=== PATIENT | female | born 2000 | race Caucasian/White ===

== ENCOUNTER 2018-04-30 18:16 | Emergency (ER) | payer BC, OTHER ==
[2018-04-30] MEDS: NS 1,000 ML IV (19:00)
[2018-04-30 19:13] LABS: BASO % 0.2 % (0.0-1.0); EOS % 0.2 % (0.0-3.0); HEMATOCRIT 41.1 % (36.0-47.0); IMMATURE GRANULOCYTE % 0.6 % (0-3.0); LYMPH # 1.6 10^3/uL (1.5-6.5); LYMPH % 11.4 % (24.0-44.0); MEAN CORPUSCULAR HEMOGLOBIN 30.2 pg (27.0-33.0); MEAN CORPUSCULAR HGB CONC 34.1 g/dl (32.0-36.5); MEAN CORPUSCULAR VOLUME 88.8 fl (80.0-96.0); MONO # 0.6 10^3/uL (0.0-0.8); MONO % 4.5 % (0.0-5.0); NEUTROPHILS # 11.7 10^3/uL (1.8-7.7); NEUTROPHILS % 83.1 % (36.0-66.0); PLATELET COUNT, AUTOMATED 201 10^3/uL (150-450); RED BLOOD COUNT 4.63 10^6/uL (4.00-5.40); RED CELL DISTRIBUTION WIDTH 11.8 % (11.5-14.5); WHITE BLOOD COUNT 14.1 10^3/uL (4.0-10.0)
[2018-04-30 19:22] LABS: CONTROL LINE HCG INT CTR LINE PRESENT; HCG, SERUM QUALITATIVE NEGATIVE (NEGATIVE)
[2018-04-30 19:30] LABS: ALBUMIN 4.2 GM/DL (3.2-5.2); ALBUMIN/GLOBULIN RATIO 1.14 (1.00-1.93); ALKALINE PHOSPHATASE 61 U/L (45-117); ALT/SGPT 21 U/L (12-78); ANION GAP 8 MEQ/L (8-16); AST/SGOT 19 U/L (7-37); BILIRUBIN,DIRECT 0.1 MG/DL (0.0-0.2); BILIRUBIN,TOTAL 0.6 MG/DL (0.2-1.0); BLOOD UREA NITROGEN 11 MG/DL (7-18); CALCIUM LEVEL 8.7 MG/DL (8.5-10.1); CARBON DIOXIDE LEVEL 27 MEQ/L (21-32); CHLORIDE LEVEL 105 MEQ/L (98-107); GLUCOSE, FASTING 127 MG/DL (70-100); LIPASE 86 U/L (73-393); POTASSIUM SERUM 3.8 MEQ/L (3.5-5.1); SODIUM LEVEL 140 MEQ/L (136-145); TOTAL PROTEIN 7.9 GM/DL (6.4-8.2)
[2018-04-30] MEDS: GASTROGRAFIN SOLUTION 30ML PO ×2 (20:20→20:53)
[2018-04-30 20:30] LABS: KETONE, URINE AUTO RFX NEGATIVE (NEGATIVE); LEUKOCYTE ESTERASE UR AUTO RFX NEGATIVE (NEGATIVE); NITRITE, URINE AUTO RFX NEGATIVE (NEGATIVE); RBC, URINE AUTO RFX 2 /HPF (0-3); SPECIFIC GRAVITY UR AUTO RFX 1.004 (1.002-1.035); SQUAM EPITHELIAL CELL UR AURFX 0 /HPF (0-6); WBC, URINE AUTO RFX 1 /HPF (0-3)
[2018-04-30 20:49] LABS: CHLAMYDIA DNA AMPLIFICATION NEGATIVE (NEGATIVE); GC DNA AMPLIFICATION NEGATIVE (NEGATIVE)
[2018-04-30] MEDS ORDERED: ISOVUE-370 76% 100ML VIAL (Q9967) As Ordered (21:29)
[2018-04-30] MEDS: OXYCODONE/APAP 5MG/325MG(BULK FOR ED) 1 TABLET PO (22:45)
== END 2018-04-30 23:10 | disposition home or self-care (01) ==
LOC: M ED 18:16
DX: N83.201 Unspecified ovarian cyst, right side (principal)
CPT/HCPCS: Q9963

== ENCOUNTER → 2019-07-05 | Outpatient (REF) | payer BC, OTHER ==
[~2019-07-05] MED LIST: PERC5TAB12 PO
[2019-07-15 14:58] LABS: HPV HYBRID CAPTURE II Negative (Negative)
== END ==
LOC: M LAB LCGH 13:44
PROVIDERS: ATTEND Physician Assistant
DX: N76.0 Acute vaginitis (principal); Z12.4 Encounter for screening for malignant neoplasm of cervix
CPT/HCPCS: 87624; G0123

== ENCOUNTER → 2022-09-17 | Outpatient (CLI) | payer OTHER ==
[2022-09-17 15:20] LABS: HEMATOCRIT 36.5 % (36.0-47.0); HEMOGLOBIN 11.7 g/dl (12.0-15.5); MEAN CORPUSCULAR HEMOGLOBIN 25.4 pg (27.0-33.0); MEAN CORPUSCULAR HGB CONC 32.1 g/dl (32.0-36.5); MEAN CORPUSCULAR VOLUME 79.3 fl (80.0-96.0); PLATELET COUNT, AUTOMATED 243 10^3/uL (150-450); WHITE BLOOD COUNT 10.7 10^3/uL (4.0-10.0)
[2022-09-17 15:56] LABS: HIV 1&2 SCREEN CENTAUR NEGATIVE (NEGATIVE)
[2022-09-17 16:04] LABS: HEPATITIS C VIRUS ABY INDEX 0.1 INDEX (<0.8)
[2022-09-17 17:02] LABS: GC DNA AMPLIFICATION NEGATIVE (NEGATIVE)
== END ==
LOC: M PLALAB 12:06
PROVIDERS: ATTEND Specialist
DX: Z34.01 Encounter for supervision of normal first pregnancy, first trimester (principal); Z3A.00 Weeks of gestation of pregnancy not specified

== ENCOUNTER → 2022-11-10 | Outpatient (CLI) | payer OTHER | LOC: M RAD 13:42 | PROVIDERS: ATTEND Specialist | DX: O30.042 Twin pregnancy, dichorionic/diamniotic, second trimester (principal); Z3A.20 20 weeks gestation of pregnancy ==

== ENCOUNTER 2022-12-15 22:42 | Outpatient (CLI) | payer OTHER ==
[~2022-12-15] VITALS: Ht 154.9 cm; Wt 65.5 kg
[2022-12-15 23:39] VITALS: BP 109/60
[2022-12-16] VITALS (7 sets, daily range): BP systolic 95–125; BP diastolic 53–69
[2022-12-16] MEDS ORDERED: PRENTAB9 PO (01:00)
[2022-12-16] MEDS ORDERED: HOME MED LIST COMPLETE! XX SCH (01:05)
[2022-12-16] MEDS ORDERED: TERBUTALINE SULFATE 1 MG/ML 1ML VIAL SC STA (02:34)
[2022-12-16 09:35] LABS: APPEARANCE, URINE CLEAR (CLEAR); BACTERIA, URINE AUTO 2+ (NEGATIVE); BILIRUBIN, URINE AUTO NEGATIVE (NEGATIVE); BLOOD, URINE BLOOD NEGATIVE (NEGATIVE); COLOR, URINE STRAW (YELLOW); GLUCOSE, URINE (UA) AUTO NEGATIVE (NEGATIVE); KETONE, URINE AUTO NEGATIVE (NEGATIVE); LEUKOCYTE ESTERASE, URINE AUTO NEGATIVE (NEGATIVE); NITRITE, URINE AUTO NEGATIVE (NEGATIVE); PROTEIN, URINE AUTO NEGATIVE (NEGATIVE); RBC, URINE AUTO 0 /HPF (0-3); SPECIFIC GRAVITY URINE AUTO 1.008 (1.002-1.035); SQUAMOUS EPITHELIAL CELL UR AU 2 /HPF (0-6); UROBILINOGEN, URINE AUTO 0.2 mg/dL (0.0-2.0); WBC, URINE AUTO 0 /HPF (0-3)
== END 2022-12-16 09:19 | disposition home or self-care (01) ==
LOC: M LDO 22:42
PROVIDERS: ATTEND Specialist
DX: O47.02 False labor before 37 completed weeks of gestation, second trimester (principal); O30.042 Twin pregnancy, dichorionic/diamniotic, second trimester; Z3A.25 25 weeks gestation of pregnancy
CPT/HCPCS: 81001; J3105

== ENCOUNTER → 2022-12-25 | Outpatient (CLI) | payer OTHER ==
[~2022-12-25] MED LIST changes: +PRENTAB9 PO
[2022-12-25 15:47] LABS: HEMATOCRIT 25.8 % (36.0-47.0); MEAN CORPUSCULAR HEMOGLOBIN 23.7 pg (27.0-33.0); MEAN CORPUSCULAR VOLUME 76.6 fl (80.0-96.0); PLATELET COUNT, AUTOMATED 252 10^3/uL (150-450); RED BLOOD COUNT 3.37 10^6/uL (4.00-5.40); WHITE BLOOD COUNT 16.8 10^3/uL (4.0-10.0)
[2022-12-25 17:26] LABS: GC DNA AMPLIFICATION NEGATIVE (NEGATIVE)
== END ==
LOC: M PLALAB 11:59
PROVIDERS: ATTEND Advanced Practice Midwife
DX: O30.049 Twin pregnancy, dichorionic/diamniotic, unspecified trimester (principal); Z3A.00 Weeks of gestation of pregnancy not specified

== ENCOUNTER 2023-01-15 07:24 | Outpatient (CLI) | payer OTHER ==
[~2023-01-15] VITALS: Ht 154.9 cm; Wt 65.9 kg
[2023-01-15 07:51] VITALS: BP 121/72
[2023-01-15] MEDS ORDERED: IRON SUCROSE 500 MG in NS 250 ML OVER 4 HRS IV ONE (08:00)
[2023-01-15] MEDS ORDERED: diphenhydrAMINE 50MG CAP PO ONE (08:00)
[2023-01-15] MEDS ORDERED: diphenhydrAMINE 50MG CAP PO PRN (08:50)
[2023-01-15 10:00] VITALS: BP 138/79
[2023-01-15 11:00] VITALS: BP 124/80
[2023-01-15 13:15] VITALS: BP 111/58
== END 2023-01-15 13:15 | disposition home or self-care (01) ==
LOC: M INFU 07:24
PROVIDERS: ATTEND Advanced Practice Midwife
DX: D64.9 Anemia, unspecified (principal)
CPT/HCPCS: 96365; 96366; J1756

== ENCOUNTER → 2023-02-01 | Outpatient (CLI) | payer OTHER | LOC: M WHC 09:52 | PROVIDERS: ATTEND Specialist | DX: O30.049 Twin pregnancy, dichorionic/diamniotic, unspecified trimester (principal); Z3A.32 32 weeks gestation of pregnancy ==

== ENCOUNTER → 2023-02-12 | Outpatient (CLI) | payer OTHER ==
[~2023-02-12] VITALS: Ht 154.9 cm; Wt 70.0 kg
[~2023-02-12] MED LIST changes: +IRON SUCROSE 500 MG in NS 250 ML OVER 4 HRS IV ONE
[2023-02-12 09:32] VITALS: BP 121/56
[2023-02-12 12:00] VITALS: BP 117/56
[2023-02-12 14:03] VITALS: BP 136/62
== END ==
LOC: M INFU 09:15
PROVIDERS: ATTEND Specialist
DX: D64.9 Anemia, unspecified (principal)
CPT/HCPCS: 96365; 96366; J1756

== ENCOUNTER → 2023-02-25 | Outpatient (REF) | payer OTHER ==
[~2023-02-25] MED LIST changes: -IRON SUCROSE 500 MG in NS 250 ML OVER 4 HRS IV ONE
== END ==
LOC: M PLALAB 11:15
PROVIDERS: ATTEND Advanced Practice Midwife
DX: Z36.85 Encounter for antenatal screening for Streptococcus B (principal); Z3A.35 35 weeks gestation of pregnancy

== ENCOUNTER 2023-02-28 16:45 | Outpatient (CLI) | payer OTHER ==
[~2023-02-28] VITALS: Ht 154.9 cm; Wt 70.7 kg
[2023-02-28] MEDS ORDERED: LACTATED RINGER'S 1000 ML IV STA (17:38)
== END 2023-02-28 17:40 ==
LOC: M LDO 16:45
PROVIDERS: ATTEND Obstetrics & Gynecology
DX: O47.03 False labor before 37 completed weeks of gestation, third trimester (principal); Z3A.36 36 weeks gestation of pregnancy
CPT/HCPCS: 59025; G0463

== ENCOUNTER → 2023-03-11 | Outpatient (CLI) | payer OTHER ==
[~2023-03-11] MED LIST changes: +IBUP80TA PO; +OXYC1TAB23 PO
== END ==
LOC: M WHC 08:01
PROVIDERS: ATTEND Advanced Practice Midwife
DX: O30.043 Twin pregnancy, dichorionic/diamniotic, third trimester (principal)

== ENCOUNTER 2023-03-17 05:07 | Inpatient (IN) | payer OTHER ==
[2023-03-17] VITALS (10 sets, daily range): BP systolic 99–133; BP diastolic 54–79; TEMP 97; O2SAT 95–98
[~2023-03-17] VITALS: Ht 154.9 cm; Wt 65.0 kg
[~2023-03-17 05:07] MED LIST changes: -IBUP80TA PO; -OXYC1TAB23 PO
[2023-03-17] MEDS ORDERED: LACTATED RINGER'S 1000 ML IV STA (05:09)
[2023-03-17] MEDS ORDERED: BICITRA 30ML SOLN UDC PO ONE (05:10)
[2023-03-17] MEDS ORDERED: ceFAZolin SOD 2 GM in IV 1 EA IV ONE (05:10)
[2023-03-17] MEDS ORDERED: LR 1,000 ML IV SCH (05:10)
[2023-03-17 06:16] LABS: HEMATOCRIT 32.8 % (36.0-47.0); HEMOGLOBIN 10.4 g/dl (12.0-15.5); MEAN CORPUSCULAR HEMOGLOBIN 24.7 pg (27.0-33.0); MEAN CORPUSCULAR HGB CONC 31.7 g/dl (32.0-36.5); MEAN CORPUSCULAR VOLUME 77.9 fl (80.0-96.0); PLATELET COUNT, AUTOMATED 187 10^3/uL (150-450); RED BLOOD COUNT 4.21 10^6/uL (4.00-5.40); WHITE BLOOD COUNT 12.2 10^3/uL (4.0-10.0)
[2023-03-17] MEDS ORDERED: MORPHINE PRES-FREE INJ 10 MG/10 ML VIAL As Ordered ONE (08:15)
[2023-03-17] MEDS ORDERED: GLYCOPYRROLATE INJ 0.2 MG/ML 2 ML VIAL As Ordered ONE (08:15)
[2023-03-17] MEDS ORDERED: OXYTOCIN 30UNITS IN 0.9% NaCl 500ML IV BAG As Ordered ONE ×2 (08:15→09:27)
[2023-03-17] MEDS ORDERED: OXYTOCIN INJ 10UNITS/ML 1ML VIAL As Ordered ONE (08:15)
[2023-03-17] MEDS ORDERED: ONDANSETRON 4MG 2ML VIAL As Ordered ONE (08:15)
[2023-03-17] MEDS ORDERED: KETOROLAC 60MG 2ML VIAL As Ordered ONE (08:15)
[2023-03-17] MEDS ORDERED: MIDAZOLAM INJ 2MG/2ML VIAL As Ordered ONE (08:16)
[2023-03-17] MEDS ORDERED: ACETAMINOPHEN 1000MG 100ML IV BAG As Ordered ONE (08:20)
[2023-03-17] MEDS ORDERED: PHENYLephrine 500MCG 5ML (100MCG/ML) SYRINGE As Ordered ONE (08:51)
[2023-03-17] MEDS ORDERED: OXYTOCIN DRIP 30 UNITS in IV 1 EA IV SCH (08:55)
[2023-03-17] MEDS ORDERED: SIMETHICONE 80MG CHEW TAB PO PRN (08:55)
[2023-03-17] MEDS ORDERED: ONDANSETRON 4MG 2ML VIAL IV PRN ×2 (08:55→09:30)
[2023-03-17] MEDS ORDERED: PERCOCET 5MG/325MG TAB PO PRN ×2 (08:55)
[2023-03-17] MEDS ORDERED: RHOGAM 300MCG (1500IU) INJ IM SCH (08:55)
[2023-03-17] MEDS: PRENATAL VITAMINS CHEWABLE TABLET PO SCH (09:00)
[2023-03-17] MEDS ORDERED: **NOTE PATIENT COMMENT** MISC XX SCH (09:30)
[2023-03-17] MEDS ORDERED: NALOXONE INJ 0.4MG/1ML VIAL IV PRN ×2 (09:30)
[2023-03-17] MEDS ORDERED: oxyCODONE 5MG TAB PO PRN (09:30)
[2023-03-17] MEDS ORDERED: diphenhydrAMINE 50MG/ML VIAL IV PRN (09:30)
[2023-03-17] MEDS ORDERED: fentaNYL 100 MCG/2 ML INJECTION IV PRN (09:30)
[2023-03-17] MEDS ORDERED: MEPERIDINE 25 MG/ML 1ML VIAL IV PRN (09:30)
[2023-03-17] MEDS: SLF 3 ML SYR IV SCH ×3 (09:30→22:59)
[2023-03-17] MEDS ORDERED: HYDROMORPHONE HCL 0.5 MG/ 0.5 ML SYRINGE IV PRN (09:30)
[2023-03-17] MEDS ORDERED: METOCLOPRAMIDE INJ 10MG/2ML VIAL IV PRN (09:30)
[2023-03-17] MEDS: LR 1,000 ML IV SCH ×3 (14:00→21:36)
[2023-03-17] MEDS: KETOROLAC 30 MG/ML 1ML VIAL IV SCH ×2 (15:15→20:15)
[2023-03-18] MEDS: KETOROLAC 30 MG/ML 1ML VIAL IV SCH (02:37)
[2023-03-18 06:00] VITALS: BP 104/50; O2SAT 97
[2023-03-18 06:50] LABS: HEMATOCRIT 26.2 % (36.0-47.0); MEAN CORPUSCULAR HEMOGLOBIN 24.3 pg (27.0-33.0); MEAN CORPUSCULAR HGB CONC 30.9 g/dl (32.0-36.5); MEAN CORPUSCULAR VOLUME 78.7 fl (80.0-96.0); PLATELET COUNT, AUTOMATED 190 10^3/uL (150-450); RED BLOOD COUNT 3.33 10^6/uL (4.00-5.40); WHITE BLOOD COUNT 13.5 10^3/uL (4.0-10.0)
[2023-03-18 07:01] LABS: HEMOGLOBIN 8.1 g/dl (12.0-15.5)
[2023-03-18] MEDS: PRENATAL VITAMINS CHEWABLE TABLET PO SCH (09:00)
[2023-03-18 10:00] VITALS: BP 111/70; O2SAT 98
[2023-03-18] MEDS: IBUPROFEN 800 MG TAB PO SCH ×2 (11:10→19:03)
[2023-03-18 14:00] VITALS: BP 99/52; O2SAT 100
[2023-03-18] MEDS ORDERED: OXYC1TAB23 PO (16:08)
[2023-03-18] MEDS ORDERED: IBUP80TA PO (16:08)
[2023-03-18 18:00] VITALS: BP 104/62; O2SAT 96
[2023-03-18 22:00] VITALS: BP 100/64; O2SAT 96
[2023-03-19 02:00] VITALS: BP 123/74; O2SAT 95
[2023-03-19] MEDS: IBUPROFEN 800 MG TAB PO SCH ×2 (02:36→10:25)
[2023-03-19 06:00] VITALS: BP 115/68; O2SAT 100
[2023-03-19] MEDS: PRENATAL VITAMINS CHEWABLE TABLET PO SCH (08:57)
[2023-03-19] MEDS ORDERED: MEASLES,MUMPS,RUBELLA VACCINE INJ (MMR-II) SC.IMMUN ONE (09:00)
[2023-03-19 10:00] VITALS: BP 114/68; O2SAT 97
[2023-03-19] MEDS ORDERED: OXYC1TAB23 PO (10:42)
== END 2023-03-19 13:25 | disposition home or self-care (01) | DRG 785 ==
LOC: M LDI 05:07 → M OBS 10:38
PROVIDERS: ADMIT Specialist; ATTEND Specialist
PROC: 0UB70ZZ Excision of Bilateral Fallopian Tubes, Open Approach (ICD-10-PCS; 2023-03-17)
PROC: 10D00Z1 Extraction of Products of Conception, Low, Open Approach (ICD-10-PCS; principal; 2023-03-17 07:30)
DX: O34.211 Maternal care for low transverse scar from previous cesarean delivery (principal); Z37.2 Twins, both liveborn; Z3A.38 38 weeks gestation of pregnancy; O30.043 Twin pregnancy, dichorionic/diamniotic, third trimester; Z30.2 Encounter for sterilization